=== PATIENT | male | born 1960 | race African-American/Black ===

== ENCOUNTER 2018-06-12 05:01 | Inpatient (IN) ==
[2018-06-12] MEDS ORDERED: ACETAMINOPHEN 325 MG TABLET PO PRN (08:31)
[2018-06-12] MEDS ORDERED: MORPHINE 4 MG/1 ML VIAL IV PRN (08:31)
[2018-06-12] MEDS ORDERED: PROMETHAZINE 25 MG TABLET PO PRN (08:31)
[2018-06-12 09:11] LABS: Basophils % 0.2 % (0.0-0.8); Eosinophils % 0.4 % (0.00-10.9); Hemoglobin 8.6 GM/DL (14.0-18.0); Immature Granulocytes % 0.3 %; Immature Granulocytes Absolute 0.03 #; Lymphocytes # 0.6 10*3/uL (1.4-4.0); Lymphocytes % 6.8 % (21.2-54.2); Mean Corpuscular HGB Conc 31.9 GM/DL (32-36); Mean Corpuscular Hemoglobin 26 PG (27-34); Mean Corpuscular Volume 80.6 FL (87-102); Mean Platelet Volume 12.2 FL (9.6-12.0); Monocytes # 0.8 10*3/uL (0.11-0.8); Monocytes % 8.1 % (1.7-12.7); Neutrophils % 84.2 % (38.7-73.9); Platelet Count 154 T/CUMM (130-400); Red Blood Count 3.35 MC/CUMM (3.8-5.5); Red Cell Distribution Width 15.9 % (9.3-17.3); White Blood Count 9.4 T/CUMM (4-12)
[2018-06-12] MEDS: PANTOPRAZOLE 40 MG TABLET PO SCH (09:27)
[2018-06-12 09:32] LABS: Alanine Aminotransferase 24 U/L (16-61); Alkaline Phosphatase 58 U/L (45-117); Aspartate Amino Transferase 18 U/L (0-37); Bilirubin,Total < 0.39 MG/DL (0.2-1.0); Blood Urea Nitrogen 119 MG/DL (7-18); Calcium 7.1 MG/DL (8.5-10.1); Cholesterol 138 MG/DL (50-200); Glucose 87 MG/DL (74-106); HDL Cholesterol 76 MG/DL (40-60); Osmolality,Calculated 313.5 MOS/KG (273-304); Potassium 4.2 MMOL/L (3.5-5.1); Risk Ratio 1.82; Sodium 139 MMOL/L (136-145); Thyroid Stimulating Hormone 0.472 uIU/ml (0.358-3.74); Total Protein 7.8 G/DL (6.4-8.3); Triglycerides 82 MG/DL (2-150); VLDL CHOLESTEROL 16.4 MG/DL
[2018-06-12 10:26] LABS: Hepatitis A Ab IgM Quant 0.11 Index; Hepatitis A Ab IgM Result Negative (Negative); Hepatitis B Core IgM Quant 0.17 Index; Hepatitis B Core IgM Result Negative (Negative); Hepatitis B Surface Ag Quant < 0.10 Index; Hepatitis B Surface Ag Result Negative (Negative); Hepatitis C Virus Ab Quant 0.28 Index; Hepatitis C Virus Ab Result Negative (Negative)
[2018-06-12] MEDS: SODIUM BICARB INJ 100 MEQ in DEXTROSE 5% NACL 0.45% 1,000 ML IV SCH ×2 (10:40→20:29)
[2018-06-12] MEDS ORDERED: GLUCAGON 1 MG VIAL IM PRN (12:36)
[2018-06-12] MEDS ORDERED: DEXTROSE 50% 25 GM/50 ML VIAL IV PRN (12:36)
[2018-06-12 14:17] LABS: Apearance,Urine Slightly Hazy (Clear); Bilirubin,Urine Negative (Negative); Blood, Urine Moderate mg/dL (Negative); Glucose,Urine (UA) Negative (Negative); Ketones,Urine Negative (Negative); Nitrite,Urine Negative (Negative); Protein,Urine >=500 MG/DL; Urine Color Yellow (Yellow); Urine Specific Gravity 1.011 (1.001-1.035); Urine Urobilinogen < 2.0 EU/DL (0.2-1.0)
[2018-06-12 14:38] LABS: Protein/Creatinine Ratio,Urine 4.8 RATIO
[2018-06-12] MEDS: INSULIN REGULAR 100 UNIT/ML SUBCUT SCH (18:38)
[2018-06-13] MEDS: INSULIN REGULAR 100 UNIT/ML SUBCUT SCH ×4 (00:22→18:04)
[2018-06-13 06:20] LABS: Basophils % 0.3 % (0.0-0.8); Eosinophils # 0.1 10*3/uL (0.0-0.87); Eosinophils % 1.5 % (0.00-10.9); Hematocrit 22.5 VOL% (42.0-52.0); Immature Granulocytes % 0.3 %; Immature Granulocytes Absolute 0.02 #; Lymphocytes # 1.4 10*3/uL (1.4-4.0); Lymphocytes % 22.3 % (21.2-54.2); Mean Corpuscular HGB Conc 31.6 GM/DL (32-36); Mean Corpuscular Hemoglobin 25 PG (27-34); Mean Corpuscular Volume 79.8 FL (87-102); Mean Platelet Volume 11.8 FL (9.6-12.0); Monocytes # 0.6 10*3/uL (0.11-0.8); Monocytes % 10.5 % (1.7-12.7); Neutrophils % 65.1 % (38.7-73.9); Red Blood Count 2.82 MC/CUMM (3.8-5.5); Red Cell Distribution Width 15.5 % (9.3-17.3); White Blood Count 6.1 T/CUMM (4-12)
[2018-06-13 06:28] LABS: Calcium 6.5 MG/DL (8.5-10.1); Osmolality,Calculated 322.1 MOS/KG (273-304); Potassium 4.4 MMOL/L (3.5-5.1)
[2018-06-13 06:31] LABS: Hemoglobin 7.1 GM/DL (14.0-18.0); Platelet Count 116 T/CUMM (130-400)
[2018-06-13] MEDS: SODIUM BICARB INJ 100 MEQ in DEXTROSE 5% NACL 0.45% 1,000 ML IV SCH ×2 (07:35→23:33)
[2018-06-13] MEDS: PANTOPRAZOLE 40 MG TABLET PO SCH (09:29)
[2018-06-13] MEDS ORDERED: hydrALAZINE 20 MG/1 ML VIAL IV PRN (10:54)
[2018-06-13] MEDS ORDERED: ceFAZolin 1,000 MG in SYRINGE 1 EACH IV ONE (12:21)
[2018-06-13] MEDS ORDERED: LIDOCAINE 1%/EPI INJ 20 ML VIAL ONE (13:07)
[2018-06-13] MEDS ORDERED: HEPARIN 5,000 UNIT/1 ML VIAL ONE (13:07)
[2018-06-13] MEDS ORDERED: BUPIVACAINE 0.5% 50 ML VIAL ONE (13:07)
[2018-06-13] MEDS: SODIUM CHLORIDE 0.9% 250 ML IV SCH (13:50)
[2018-06-13] MEDS ORDERED: fentaNYL 100 MCG/2 ML VIAL ONE (14:24)
[2018-06-13] MEDS ORDERED: KETAMINE 500 MG/10 ML VIAL ONE (14:24)
[2018-06-13] MEDS ORDERED: PROPOFOL 200 MG/20 ML VIAL IV ONE (14:24)
[2018-06-13] MEDS ORDERED: MIDAZOLAM 2 MG/2 ML VIAL ONE (14:24)
[2018-06-13] MEDS ORDERED: hydrALAZINE 20 MG/1 ML VIAL ONE (14:25)
[2018-06-13] MEDS ORDERED: ONDANSETRON 4 MG/2 ML VIAL ONE (14:25)
[2018-06-13] MEDS: FERROUS SULFATE 325 MG TABLET PO SCH (16:50)
[2018-06-13] MEDS ORDERED: EPOETIN ALFA 10,000 UNIT/1 ML VIAL IV PRN (18:46)
[2018-06-13] MEDS ORDERED: HEPARIN 10,000 UNIT/10 ML VIAL IV PRN (18:46)
[2018-06-13] MEDS: ROSUVASTATIN 10 MG TABLET PO SCH (20:56)
[2018-06-13] MEDS ORDERED: amLODIPine 5 MG TABLET PO ONE (22:47)
[2018-06-13 23:51] LABS: Creatinine 24 Hr Urine Result 1.17 G/24HR (0.95-2.49)
[2018-06-13 23:53] LABS: Creatinine Clearance Urine 6.15 ML/MIN (70-135)
[2018-06-14] MEDS: INSULIN REGULAR 100 UNIT/ML SUBCUT SCH ×5 (00:40→22:53)
[2018-06-14] MEDS: hydrALAZINE 20 MG/1 ML VIAL IV PRN ×2 (03:13→08:46)
[2018-06-14 04:23] LABS: Basophils % 0.2 % (0.0-0.8); Eosinophils % 0.6 % (0.00-10.9); Hematocrit 21.7 VOL% (42.0-52.0); Immature Granulocytes % 0.2 %; Immature Granulocytes Absolute 0.01 #; Lymphocytes # 0.9 10*3/uL (1.4-4.0); Lymphocytes % 16.9 % (21.2-54.2); Mean Corpuscular HGB Conc 32.3 GM/DL (32-36); Mean Corpuscular Hemoglobin 26 PG (27-34); Mean Corpuscular Volume 79.5 FL (87-102); Mean Platelet Volume 11.7 FL (9.6-12.0); Monocytes # 0.8 10*3/uL (0.11-0.8); Monocytes % 14.2 % (1.7-12.7); Neutrophils # 3.7 10*3/uL (1.4-7.4); Neutrophils % 67.9 % (38.7-73.9); Platelet Count 116 T/CUMM (130-400); Red Blood Count 2.73 MC/CUMM (3.8-5.5); Red Cell Distribution Width 15.2 % (9.3-17.3); White Blood Count 5.4 T/CUMM (4-12)
[2018-06-14 04:53] LABS: % Iron Saturation 16.3 % (18-50); Uric Acid 6.2 MG/DL (3.5-7.2)
[2018-06-14 05:01] LABS: Calcium 6.6 MG/DL (8.5-10.1); Potassium 4.2 MMOL/L (3.5-5.1)
[2018-06-14] MEDS: SODIUM BICARB INJ 100 MEQ in DEXTROSE 5% NACL 0.45% 1,000 ML IV SCH (05:41)
[2018-06-14] MEDS: NICOTINE 21 MG/24 HR PATCH TRANSDERM SCH (08:47)
[2018-06-14] MEDS: PANTOPRAZOLE 40 MG TABLET PO SCH (08:47)
[2018-06-14] MEDS: amLODIPine 5 MG TABLET PO SCH (08:47)
[2018-06-14] MEDS: FERROUS SULFATE 325 MG TABLET PO SCH ×2 (08:47→17:40)
[2018-06-14] MEDS: CALCITRIOL 0.25 MCG CAPSULE PO SCH (10:12)
[2018-06-14 10:43] LABS: Albumin (UPER) 250.9 MG/DL; Albumin (UPER) Rel% 63.2 %; Alpha 1 (UPER) 26.2 MG/DL; Alpha 1 (UPER) Rel% 6.6 %; Alpha 2 (UPER) 29.4 MG/DL; Alpha 2 (UPER) Rel % 7.4 %
[2018-06-14 10:44] LABS: Beta (UPER) 43.3 MG/DL; Beta (UPER) Rel % 10.9 %; Gamma (UPER) 47.2 MG/DL; Gamma (UPER) Rel % 11.9 %
[2018-06-14] MEDS: GABAPENTIN 100 MG CAPSULE PO SCH (22:52)
[2018-06-14] MEDS: ROSUVASTATIN 10 MG TABLET PO SCH (22:53)
[2018-06-15 04:37] LABS: Basophils % 0.3 % (0.0-0.8); Eosinophils # 0.1 10*3/uL (0.0-0.87); Eosinophils % 0.8 % (0.00-10.9); Hemoglobin 7.2 GM/DL (14.0-18.0); Immature Granulocytes % 0.3 %; Immature Granulocytes Absolute 0.02 #; Lymphocytes # 1.1 10*3/uL (1.4-4.0); Mean Corpuscular HGB Conc 31.3 GM/DL (32-36); Mean Corpuscular Hemoglobin 25 PG (27-34); Mean Corpuscular Volume 80.7 FL (87-102); Mean Platelet Volume 11.4 FL (9.6-12.0); Monocytes % 14.1 % (1.7-12.7); Neutrophils # 4.8 10*3/uL (1.4-7.4); Neutrophils % 68.5 % (38.7-73.9); Platelet Count 111 T/CUMM (130-400); Red Blood Count 2.85 MC/CUMM (3.8-5.5); Red Cell Distribution Width 14.9 % (9.3-17.3); White Blood Count 7.1 T/CUMM (4-12)
[2018-06-15 04:46] LABS: Osmolality,Calculated 300.8 MOS/KG (273-304); Potassium 3.5 MMOL/L (3.5-5.1)
[2018-06-15] MEDS: INSULIN REGULAR 100 UNIT/ML SUBCUT SCH ×4 (08:11→22:44)
[2018-06-15] MEDS: FERROUS SULFATE 325 MG TABLET PO SCH ×2 (08:11→17:08)
[2018-06-15] MEDS: PANTOPRAZOLE 40 MG TABLET PO SCH (08:11)
[2018-06-15] MEDS: amLODIPine 5 MG TABLET PO SCH (08:11)
[2018-06-15] MEDS: CALCITRIOL 0.25 MCG CAPSULE PO SCH (08:11)
[2018-06-15] MEDS: NICOTINE 21 MG/24 HR PATCH TRANSDERM SCH (08:12)
[2018-06-15] MEDS ORDERED: SODIUM CHLORIDE 0.9% 1,000 ML IV PRN (09:16)
[2018-06-15] MEDS ORDERED: MAGNESIUM SULF RIDER 2 GM in PREMIX 1 EACH IV ONE (09:17)
[2018-06-15] MEDS: hydrALAZINE 20 MG/1 ML VIAL IV PRN ×2 (10:24→14:11)
[2018-06-15] MEDS ORDERED: cloNIDine 0.1 MG TABLET PO ONE (11:08)
[2018-06-15] MEDS ORDERED: amLODIPine 5 MG TABLET PO ONE (17:22)
[2018-06-15] MEDS: ROSUVASTATIN 10 MG TABLET PO SCH (21:24)
[2018-06-15] MEDS: GABAPENTIN 100 MG CAPSULE PO SCH (21:24)
[2018-06-15] MEDS: ATENOLOL 25 MG TABLET PO SCH (21:27)
[2018-06-15] MEDS: SODIUM CHLORIDE 0.9% 250 ML IV SCH (22:53)
[2018-06-16 05:21] LABS: Basophils % 0.3 % (0.0-0.8); Eosinophils # 0.1 10*3/uL (0.0-0.87); Eosinophils % 1.4 % (0.00-10.9); Hematocrit 28.2 VOL% (42.0-52.0); Hemoglobin 9.1 GM/DL (14.0-18.0); Immature Granulocytes % 0.2 %; Immature Granulocytes Absolute 0.01 #; Lymphocytes # 1.1 10*3/uL (1.4-4.0); Lymphocytes % 17.3 % (21.2-54.2); Mean Corpuscular HGB Conc 32.3 GM/DL (32-36); Mean Corpuscular Hemoglobin 26 PG (27-34); Mean Corpuscular Volume 80.3 FL (87-102); Mean Platelet Volume 12.2 FL (9.6-12.0); Monocytes # 0.9 10*3/uL (0.11-0.8); Monocytes % 14.5 % (1.7-12.7); Neutrophils # 4.2 10*3/uL (1.4-7.4); Neutrophils % 66.3 % (38.7-73.9); Platelet Count 111 T/CUMM (130-400); Red Blood Count 3.51 MC/CUMM (3.8-5.5); Red Cell Distribution Width 14.6 % (9.3-17.3); White Blood Count 6.4 T/CUMM (4-12)
[2018-06-16 05:32] LABS: Calcium 7.7 MG/DL (8.5-10.1); Osmolality,Calculated 283.5 MOS/KG (273-304)
[2018-06-16 07:06] LABS: HIV Antigen/Antibody Result Nonreactive (Nonreactive)
[2018-06-16] MEDS ORDERED: LEVOFLOXACIN INJ 750 MG in PREMIX 1 EACH IV SCH (08:00)
[2018-06-16] MEDS: INSULIN REGULAR 100 UNIT/ML SUBCUT SCH ×2 (08:06→11:18)
[2018-06-16] MEDS ORDERED: LEVOFLOXACIN 750 MG TABLET PO ONE (08:29)
[2018-06-16] MEDS ORDERED: ACETAMINOPHEN 500 MG TABLET PO ONE (08:30)
[2018-06-16] MEDS ORDERED: amLODIPine 10 MG TABLET PO SCH (09:00)
[2018-06-16] MEDS: ATENOLOL 25 MG TABLET PO SCH (09:31)
[2018-06-16] MEDS: CALCITRIOL 0.25 MCG CAPSULE PO SCH (09:31)
[2018-06-16] MEDS: PANTOPRAZOLE 40 MG TABLET PO SCH (09:32)
[2018-06-16] MEDS: NICOTINE 21 MG/24 HR PATCH TRANSDERM SCH (09:32)
[2018-06-16] MEDS: FERROUS SULFATE 325 MG TABLET PO SCH (09:32)
[2018-06-16 11:52] VITALS: BP 149/78
== END 2018-06-16 14:00 | disposition home or self-care (01) | DRG 468 ==
LOC: INTOOBSV 08:11 → SUATTDRO 08:11 → N.5E 08:11
PROVIDERS: ADMIT Internal Medicine; ATTEND Internal Medicine

== ENCOUNTER 2021-06-16 10:30 | Inpatient (IN) ==
[2021-06-16 11:59] LABS: Albumin 3.7 G/DL (3.4-5.0); Bilirubin,Total 0.5 MG/DL (0.20-1.00); Calcium 9.1 MG/DL (8.5-10.1); Osmolality,Calculated 287.7 MOS/KG (273-304); Potassium 3.6 MMOL/L (3.5-5.1)
[2021-06-16 13:08] LABS: Basophils % 0.6 % (0.0-0.8); Eosinophils # 0.3 10*3/uL (0.0-0.87); Eosinophils % 5.9 % (0.00-10.9); Hematocrit 32.6 VOL% (42.0-52.0); Hemoglobin 10.3 GM/DL (14.0-18.0); Immature Granulocytes % 0.4 %; Immature Granulocytes Absolute 0.02 #; Lymphocytes % 19.5 % (21.2-54.2); Mean Corpuscular HGB Conc 31.6 GM/DL (32-36); Mean Corpuscular Volume 82.5 FL (87-102); Monocytes # 0.4 10*3/uL (0.11-0.8); Neutrophils % 65.6 % (38.7-73.9); Platelet Count 83 T/CUMM (130-400); Red Blood Count 3.95 MC/CUMM (3.8-5.5); Red Cell Distribution Width 17.2 % (9.3-17.3); White Blood Count 4.9 T/CUMM (4-12)
[2021-06-16] MEDS ORDERED: ONDANSETRON 4 MG/2 ML VIAL IV PRN (14:33)
[2021-06-16] MEDS ORDERED: DOCUSATE SODIUM 100 MG CAPSULE PO PRN (14:33)
[2021-06-16] MEDS ORDERED: NITROGLYCERIN SL 0.4 MG TABLET SL PRN (14:38)
[2021-06-16] MEDS: ENOXAPARIN 30 MG/0.3 ML SYRINGE SUBCUT SCH (18:55)
[2021-06-16] MEDS: GABAPENTIN 100 MG CAPSULE PO SCH (21:33)
[2021-06-16] MEDS: carvediloL 25 MG TABLET PO SCH (21:34)
[2021-06-16] MEDS: ISOSORBIDE MONONITRATE 20 MG TABLET PO SCH (21:34)
[2021-06-17 06:26] LABS: Basophils % 0.9 % (0.0-0.8); Eosinophils # 0.4 10*3/uL (0.0-0.87); Eosinophils % 9.9 % (0.00-10.9); Hematocrit 30.2 VOL% (42.0-52.0); Hemoglobin 9.6 GM/DL (14.0-18.0); Immature Granulocytes % 0.2 %; Immature Granulocytes Absolute 0.01 #; Lymphocytes # 1.1 10*3/uL (1.4-4.0); Lymphocytes % 25.1 % (21.2-54.2); Mean Corpuscular HGB Conc 31.8 GM/DL (32-36); Mean Corpuscular Volume 83.7 FL (87-102); Monocytes # 0.5 10*3/uL (0.11-0.8); Monocytes % 12.1 % (1.7-12.7); Neutrophils % 51.8 % (38.7-73.9); Platelet Count 70 T/CUMM (130-400); Red Blood Count 3.61 MC/CUMM (3.8-5.5); White Blood Count 4.2 T/CUMM (4-12)
[2021-06-17 06:45] LABS: Burr Cells 1+; Platelet Estimate Decreased; Poikilocytosis 1+; Target Cells 1+
[2021-06-17 06:49] LABS: Calcium 8.4 MG/DL (8.5-10.1); Osmolality,Calculated 294.4 MOS/KG (273-304); Potassium 3.8 MMOL/L (3.5-5.1)
[2021-06-17] MEDS: ASPIRIN EC 81 MG TABLET PO SCH (09:30)
[2021-06-17] MEDS: GABAPENTIN 100 MG CAPSULE PO SCH ×2 (09:30→21:42)
[2021-06-17] MEDS: SERTRALINE 50 MG TABLET PO SCH (09:31)
[2021-06-17] MEDS: lisinopriL 20 MG TABLET PO SCH (09:35)
[2021-06-17] MEDS: amLODIPine 10 MG TABLET PO SCH (09:35)
[2021-06-17] MEDS: ISOSORBIDE MONONITRATE 20 MG TABLET PO SCH ×2 (09:35→21:41)
[2021-06-17] MEDS: carvediloL 25 MG TABLET PO SCH ×2 (15:23→21:42)
[2021-06-17] MEDS: ENOXAPARIN 30 MG/0.3 ML SYRINGE SUBCUT SCH (16:03)
[2021-06-17] MEDS: ROSUVASTATIN 10 MG TABLET PO SCH (21:41)
[2021-06-18] MEDS ORDERED: ALBUTEROL/IPRATROPIUM 3 ML NEB RESP TX PRN (10:17)
[2021-06-18] MEDS: GABAPENTIN 100 MG CAPSULE PO SCH ×2 (10:19→21:56)
[2021-06-18] MEDS: ASPIRIN EC 81 MG TABLET PO SCH (10:19)
[2021-06-18] MEDS: SERTRALINE 50 MG TABLET PO SCH (10:20)
[2021-06-18] MEDS: ALBUTEROL/IPRATROPIUM 3 ML NEB RESP TX SCH ×2 (12:11→20:00)
[2021-06-18] MEDS: carvediloL 25 MG TABLET PO SCH ×2 (14:53→21:56)
[2021-06-18] MEDS: amLODIPine 10 MG TABLET PO SCH (14:53)
[2021-06-18] MEDS: lisinopriL 20 MG TABLET PO SCH (14:53)
[2021-06-18] MEDS: ISOSORBIDE MONONITRATE 20 MG TABLET PO SCH ×2 (14:53→21:56)
[2021-06-18] MEDS: MONTELUKAST 10 MG TABLET PO SCH (14:54)
[2021-06-18] MEDS: ENOXAPARIN 30 MG/0.3 ML SYRINGE SUBCUT SCH (15:04)
[2021-06-18] MEDS: ROSUVASTATIN 10 MG TABLET PO SCH (21:56)
[2021-06-19] MEDS: ALBUTEROL/IPRATROPIUM 3 ML NEB RESP TX SCH ×4 (01:10→19:24)
[2021-06-19] MEDS: GABAPENTIN 100 MG CAPSULE PO SCH ×2 (08:35→21:53)
[2021-06-19] MEDS: ASPIRIN EC 81 MG TABLET PO SCH (08:35)
[2021-06-19] MEDS: SERTRALINE 50 MG TABLET PO SCH (08:36)
[2021-06-19] MEDS: MONTELUKAST 10 MG TABLET PO SCH (08:36)
[2021-06-19] MEDS: ISOSORBIDE MONONITRATE 20 MG TABLET PO SCH ×2 (08:36→21:53)
[2021-06-19] MEDS: carvediloL 25 MG TABLET PO SCH ×2 (08:36→21:53)
[2021-06-19] MEDS: lisinopriL 20 MG TABLET PO SCH (08:36)
[2021-06-19] MEDS: amLODIPine 10 MG TABLET PO SCH (08:36)
[2021-06-19 09:07] LABS: Basophils % 0.9 % (0.0-0.8); Eosinophils # 0.4 10*3/uL (0.0-0.87); Eosinophils % 7.9 % (0.00-10.9); Hematocrit 30.6 VOL% (42.0-52.0); Hemoglobin 9.5 GM/DL (14.0-18.0); Immature Granulocytes % 0.5 %; Immature Granulocytes Absolute 0.02 #; Lymphocytes % 22.4 % (21.2-54.2); Mean Corpuscular Volume 82.9 FL (87-102); Monocytes # 0.6 10*3/uL (0.11-0.8); Monocytes % 13.3 % (1.7-12.7); Platelet Count 63 T/CUMM (130-400); Red Blood Count 3.69 MC/CUMM (3.8-5.5); Red Cell Distribution Width 16.8 % (9.3-17.3); White Blood Count 4.4 T/CUMM (4-12)
[2021-06-19 09:20] LABS: Calcium 8.4 MG/DL (8.5-10.1); Osmolality,Calculated 283.7 MOS/KG (273-304); Potassium 3.8 MMOL/L (3.5-5.1)
[2021-06-19 09:39] LABS: Anisocytosis 1+; Ovalocytes Few
[2021-06-19 09:40] LABS: Polychromasia Slight; Target Cells Slight
[2021-06-19 09:41] LABS: Hypochromia Slight; Platelet Estimate Adequate
[2021-06-19] MEDS: ROSUVASTATIN 10 MG TABLET PO SCH (21:53)
[2021-06-20] MEDS: ALBUTEROL/IPRATROPIUM 3 ML NEB RESP TX SCH ×3 (00:27→16:29)
[2021-06-20 06:08] LABS: Basophils % 0.7 % (0.0-0.8); Eosinophils # 0.4 10*3/uL (0.0-0.87); Hematocrit 28.1 VOL% (42.0-52.0); Hemoglobin 8.8 GM/DL (14.0-18.0); Immature Granulocytes % 0.2 %; Immature Granulocytes Absolute 0.01 #; Lymphocytes # 1.1 10*3/uL (1.4-4.0); Lymphocytes % 26.4 % (21.2-54.2); Mean Corpuscular HGB Conc 31.3 GM/DL (32-36); Mean Corpuscular Volume 82.2 FL (87-102); Monocytes # 0.6 10*3/uL (0.11-0.8); Monocytes % 13.3 % (1.7-12.7); Neutrophils % 49.4 % (38.7-73.9); Platelet Count 60 T/CUMM (130-400); Red Blood Count 3.42 MC/CUMM (3.8-5.5); Red Cell Distribution Width 16.9 % (9.3-17.3); White Blood Count 4.2 T/CUMM (4-12)
[2021-06-20 06:21] LABS: Calcium 8.3 MG/DL (8.5-10.1); Osmolality,Calculated 288.7 MOS/KG (273-304); Potassium 4.1 MMOL/L (3.5-5.1)
[2021-06-20 06:50] LABS: Anisocytosis 2+; Platelet Estimate Decreased
[2021-06-20 06:52] LABS: Poikilocytosis Slight
[2021-06-20 07:20] VITALS: BP 164/62
[2021-06-20] MEDS: ISOSORBIDE MONONITRATE 20 MG TABLET PO SCH (08:32)
[2021-06-20] MEDS: SERTRALINE 50 MG TABLET PO SCH (08:32)
[2021-06-20] MEDS: carvediloL 25 MG TABLET PO SCH (08:32)
[2021-06-20] MEDS: amLODIPine 10 MG TABLET PO SCH (08:32)
[2021-06-20] MEDS: MONTELUKAST 10 MG TABLET PO SCH (08:32)
[2021-06-20] MEDS: ASPIRIN EC 81 MG TABLET PO SCH (08:32)
[2021-06-20] MEDS: GABAPENTIN 100 MG CAPSULE PO SCH (08:33)
[2021-06-20] MEDS: lisinopriL 20 MG TABLET PO SCH (08:33)
== END 2021-06-20 16:48 | disposition home or self-care (01) | DRG 640 ==
LOC: N.ED 10:30 → N.EDINP 10:30 → SUATTDRO 14:33 → N.EDINP 19:41 → N.3E 20:01
PROVIDERS: ADMIT Internal Medicine Geriatric Medicine; ATTEND Internal Medicine